=== PATIENT | male | born 1985 | race Caucasian/White ===

== ENCOUNTER 2020-11-19 13:39 | Outpatient (RCR) | payer OTHER ==
[~2020-11-19 13:39] MED LIST: CIPRO 500MG TA500 MG PO; FLAGYL 250250 MG/TAB PO; NO HOME MEDICATIONS
== END 2021-01-29 | disposition home or self-care (01) ==
LOC: WSOH
DX: M25.562 Pain in left knee (principal); Y99.0 Civilian activity done for income or pay